=== PATIENT | female | born 1995 | race Two or more races ===

== ENCOUNTER 2020-09-02 12:14 | Outpatient (CLI) | payer MEDICAID ==
[2020-09-02] MEDS ORDERED: OMNIPAQUE 350 MG/ML, 100ML BOTTLE ONE (13:00)
== END 2020-09-02 23:59 | disposition home or self-care (01) ==
LOC: CFH 12:14
PROVIDERS: ATTEND Student in an Organized Health Care Education/Training Program
DX: J35.1 Hypertrophy of tonsils (principal); J02.9 Acute pharyngitis, unspecified
CPT/HCPCS: 70491; Q9967